=== PATIENT | female | born 1970 ===

== ENCOUNTER 2017-08-31 19:43 | Emergency (ER) | payer OTHER ==
[2017-08-31] MEDS ORDERED: Naproxen 550 mg Tab PO STA (19:59)
[2017-08-31 20:05] VITALS: RESP 18; O2SAT 100
[2017-08-31] MEDS ORDERED: Naproxen 550 mg Tab PO ONE (20:08)
--- NOTE | 2017-08-31 21:14 | C.PDOC ---
History Of Present Illness 47 y/o female presents to the ED with c/o bilateral knee, lower back and right shoulder pain. Patient states she was walking into a [employer] when she tripped over a broom that was laying on the floor and fell onto her knees and hands. She was able to ambulate after the incident. Patient did not hit her head. Denies LOC, fever, change in sensation, urinary/bowel incontinence, extremity numbness/weakness. Time Seen by Provider: 08/31/17 19:54 Chief Complaint (Nursing): Lower Extremity Problem/Injury History Per: Patient History/Exam Limitations: no limitations Onset/Duration Of Symptoms: Hrs Current Symptoms Are (Timing): Still Present Additional History Per: Patient Past Medical History Reviewed: Historical Data, Nursing Documentation, Vital Signs Vital Signs: Last Vital Signs Temp 98.6 F 08/31/17 21:24 Pulse 62 08/31/17 21:24 Resp 18 08/31/17 21:24 BP 111/75 08/31/17 21:24 Pulse Ox 100 08/31/17 22:27 - Medical History PMH: No Chronic Diseases Surgical History: Family History: States: Unknown Family Hx - Social History Hx Tobacco Use: No Hx Alcohol Use: No Hx Substance Use: No - Immunization History Hx Tetanus Toxoid Vaccination: No Hx Influenza Vaccination: No Hx Pneumococcal Vaccination: No Review Of Systems Genitourinary: Negative for: Incontinence Musculoskeletal: Positive for: Shoulder Pain (right), Back Pain (lower), Other ( b/l knee pain ) Neurological: Negative for: Weakness, Numbness, Other (head injury, LOC ) Physical Exam - Physical Exam Appears: Non-toxic, No Acute Distress Skin: Warm, Dry, Other (superficial abrasion to anterior aspect of left knee ) Head: Atraumatic, Normacephalic Eye(s): bilateral: Normal Inspection, PERRL, EOMI Nose: Normal Oral Mucosa: Moist Neck: Normal ROM, Supple Chest: Symmetrical, No Deformity, No Tenderness Cardiovascular: Rhythm Regular Respiratory: Normal Breath Sounds, No Rales, No Rhonchi, No Wheezing Gastrointestinal/Abdominal: Soft, No Tenderness Back: No CVA Tenderness, No Vertebral Tenderness, Paraspinal Tenderness (right- sided, lumbar ) Extremity: Normal ROM (right shoulder ), Tenderness (diffuse, to bilateral knees ), Capillary Refill (less than 2 seconds ), No Deformity, No Swelling Neurological/Psych: Oriented x3, Normal Speech, Normal Cognition Gait: Steady ED Course And Treatment O2 Sat by Pulse Oximetry: 100 (on RA) Pulse Ox Interpretation: Normal Progress Note: LS Spine AP/LAT and bilateral knee XR ordered. Flexeril PO and Naproxen PO administered. Patinet declines shoulder XR, stating the area is only sore. On re-exam, patient is resting comfortably, showing no signs of disress and is stable for discharge. Patient is advised to f/u with her PMD within 1-2 days for further evaluation. Disposition - Disposition Disposition: HOME/ ROUTINE Disposition Time: 21:13 Condition: STABLE Additional Instructions: Vaya a guillen mdico o la clnica en 2-5 molina sin falta, para mas evaluacin. [place] los medicamentos marlee indicado. Volver a la jae de emergencia en cualquier momento si los sntomas persisten o empeoran. Prescriptions: Naproxen [Naprosyn] 1 tab PO BID PRN #20 tab PRN Reason: Pain Instructions: Contusion (DC) Forms: [employer] (Mohawk), Work Excuse, [employer] (Malagasy) Print Language: SYRIAN - Clinical Impression Clinical Impression: Knee contusion, Back strain, Shoulder strain - PA / [employer] / Resident Statement MD/DO has reviewed & agrees with the documentation as recorded. - Scribe Statement The provider has reviewed the documentation as recorded by the Scribe (Lorraine Clements) All medical record entries made by the Scribe were at my direction and personally dictated by me. I have reviewed the chart and agree that the record accurately reflects my personal performance of the history, physical exam, medical decision making, and the department course for this patient. I have also personally directed, reviewed, and agree with the discharge instructions and disposition.
[2017-08-31 21:25] VITALS: BP 111/75; PULSE 62; TEMP 98.6
--- NOTE | 2017-09-01 11:54 | RAD ---
PROCEDURE: Radiographs of the Lumbar Spine. HISTORY: trauma COMPARISON: No prior. FINDINGS: BONES: Normal alignment. No listhesis. No fracture. DISC SPACES: There is minor disc space narrowing seen at the L5-S1 level however remaining disc space heights relatively maintained. Facets are slightly hypertrophic L5-S1 through the L2-L3 levels in decreasing order of severity. Minor posterior disc space narrowing. . Small marginal anterior osteophyte formation seen at several levels OTHER FINDINGS: None. IMPRESSION: No acute fractures. Very minor degenerative spondylosis
--- NOTE | 2017-09-01 11:56 | RAD ---
PROCEDURE: Bilateral Knee Radiographs. HISTORY: trauma COMPARISON: None. FINDINGS: BONES: Right Knee: Normal. No fracture. Left Knee: Normal. No fracture. JOINTS: Very minor posterior patella osteophyte formation bilaterally. SOFT TISSUES: Right Knee: Normal. Left Knee: Normal. JOINT EFFUSION: Tiny bilateral suprapatellar joint effusions OTHER FINDINGS: None. IMPRESSION: No evidence of acute displaced fracture nor dislocation. Tiny posterior patellar osteophyte formation. Tiny bilateral joint effusions.
== END 2017-08-31 21:24 | disposition home or self-care (01) ==
LOC: C.ER 19:43
DX: S80.02XA Contusion of left knee, initial encounter (principal); S39.012A Strain of muscle, fascia and tendon of lower back, initial encounter; S46.911A Strain of unspecified muscle, fascia and tendon at shoulder and upper arm level, right arm, initial encounter; W01.0XXA Fall on same level from slipping, tripping and stumbling without subsequent striking against object, initial encounter; Y92.512 Supermarket, store or market as the place of occurrence of the external cause